=== PATIENT | female | born 1990 | race African-American/Black ===

== ENCOUNTER 2016-06-21 10:14 | Emergency (ER) | payer MEDICAID ==
[~2016-06-21] VITALS: Ht 175.3 cm; Wt 145.4 kg
[~2016-06-21 10:14] MED LIST: LORTA5 PO; MACR100C PO
[2016-06-21 10:17] VITALS: BP 137/78; PULSE 98; RESP 17; TEMP 98.1; O2SAT 100
--- NOTE | 2016-06-21 11:10 | PD ---
HPI Chief Complaint: Related Problem Time Seen by Provider: 10:56 Travel History International Travel<30 days: No Contact w/Intl Traveler<30days: No Traveled to known affect area: No History of Present Illness HPI 26-year-old Ab1 at approximately 19 weeks based on LMP of February 09, 2016 here with complaint of abdominal pain. Patient is at mild low crampy abdominal discomfort 2 days. Denies any urinary symptoms, vaginal bleeding, spotting. She has not yet established OB care for this , recently moving to [facility]. Patient has associated nausea, vomiting which has been going on throughout the . No recent fevers or chills. PFSH Past Medical History Medical History: Denies Significant Hx Tetanus Vaccination: Unknown Influenza Vaccination: No ?: LMP: 02/09/16 : 5 Para: 4 Miscarriage: 1 Past Surgical History Abdominal Surgery: Yes (c section X 3) Section: Yes (X3) Social History Alcohol Use: No Tobacco Use: No Substance Use: No Allergies-Medications (Allergen,Severity, Reaction): Coded Allergies: No Known Allergies (Unverified , 06/21/16) Reported Meds & Prescriptions Reported Meds & Active Scripts Active Review of Systems Except as stated in HPI: all other systems reviewed are Neg Physical Exam Narrative GENERAL: Well-appearing obese female in no acute distress SKIN: Focused skin assessment warm/dry. HEAD: Normocephalic. EYES: No scleral icterus. No injection or drainage. ENT: Mucous membranes pink and moist. NECK: Supple CARDIOVASCULAR: Regular rate and rhythm. RESPIRATORY: No accessory muscle use. GASTROINTESTINAL: Abdomen soft, non-tender, nondistended. MUSCULOSKELETAL: Normal gait NEUROLOGICAL: Awake and alert. Normal speech. PSYCHIATRIC: Appropriate mood and affect; insight and judgment normal. Data Data Last Documented VS Vital Signs Date Time Temp Pulse Resp B/P Pulse Ox O2 Delivery O2 Flow Rate FiO2 06/21/16 11:05 16 06/21/16 10:17 98.1 98 137/78 100 Orders Ed Poc Ultrasound (06/21/16 ) Ed Urine Pregnancytest Poc (06/21/16 10:58) MDM Medical Decision Making Medical Screen Exam Complete: Yes Emergency Medical Condition: Yes Medical Record Reviewed: Yes Differential Diagnosis 26-year-old Ab1 here at approximately 19 weeks based on LMP with complaint of low abdominal pain. Differential includes UTI, appendicitis, diverticulitis, enteritis, and related issues including intrauterine demise, threatened AB, placental abruption. Narrative Course Urine test was positive. Bedside ultrasound performed confirming IUP with active heart rates measuring close to 21 weeks. Patient will be discharged from our emergency department and go to the OB emergency department for further workup. Procedures Procedure Narrative Emergency Department Pelvic ultrasound was performed with patient consent. The curvilinear probe was used in the transverse and sagittal views within the suprapubic region revealing an intrauterine . heart rate was 150s. See this measures 21 weeks by BPD. Diagnosis Primary Impression: Abdominal pain affecting Referrals: Apartment Leasing Specialist 1 day Additional Instructions: Go to OB emergency Department as discussed. Disposition: 01 DISCHARGE HOME Condition: Stable Alejandra Klein MD Jun 21, 2016 11:10
[2016-06-21] MEDS ORDERED: LACTATED RINGER'S 1000 ML INJ 1,000 ML IV SCH (11:36)
[2016-06-21] MEDS ORDERED: ONDANSETRON HCL 4 MG/2 ML VIAL IV ONE (11:45)
[2016-06-21] MEDS ORDERED: METOCLOPRAMIDE HCL 10 MG/2 ML VIAL IV PUSH ONE (11:45)
[2016-06-21 12:08] VITALS: BP 132/70; PULSE 78
[2016-06-21 12:10] VITALS: RESP 18; TEMP 98.5
--- NOTE | 2016-06-21 12:42 | PD ---
HPI Chief Complaint Vomiting Date Seen: Jun 21, 2016 Time Seen: 12:00 Travel History International Travel<30 Days: No Contact w/Intl Traveler<30Days: No Known Affected Area: No History of Present Illness HPI Ms. Dao is a 26 yo ?3 at an estimated 21 weeks GA (per patient) who presents with complaint of nausea/vomiting, loose stools, and headache. She reports that she began having nausea/vomiting on Friday. She states she's been vomiting approximately twice a day. Patient denies history of vomiting prior to Friday during this gestation. Regarding patient's loose stools, patient states that she has had approximately 2 bowel movements a day since Friday which were loose. Patient does not report significant abdominal pain or fevers. She reports some chills. Patient states that her headache is bilateral and not associated with visual changes or other symptoms. Patient reports prior -induced hypertension with her first gestation but states that she had not had elevated blood pressures with subsequent gestations. Patient reports that she is not had care yet this gestation, she recently to [facility] moved from [facility]. Patient denies any other history of medical problems. Para: 3 : 4 History Past Medical History Narrative Medical Gestational hypertension with first Medical History: Denies Significant Hx Obstetric History Obstetric History Patient states this is her fourth gestation 3 prior C-sections; 2 were at full-term and 1 was at 24 weeks Past Surgical History Narrative Surgical section 3 Family History Narrative Family History Hypertension Social History Narrative Social History Recently moved to [facility], no care at this point Alcohol Use: No Tobacco Use: No Substance Abuse: No Allergies-Medications (Allergen,Severity, Reaction): Coded Allergies: No Known Allergies (Unverified , 06/21/16) Home Meds Active Scripts Promethazine (Phenergan)25 Mg Tab25 Mg PO Q6H PRN (Nausea/Vomiting) #30 TAB Ref 0 Prov:Robby Daigle MD R2 06/21/16 Review of Systems General / Constitutional: Chills, No: Fever Eyes: No: Blurred Vision HENT: Headaches (bilateral) Cardiovascular: No: Chest Pain or Discomfort Respiratory: No: Short of Breath Gastrointestinal: Nausea, Vomiting (2X/day 2 days), Other (loose stool, who X/ day) Genitourinary: No: Urgency, Dysuria Skin: No Rash Physical Exam Vital Signs Date Time Temp Pulse Resp B/P Pulse Ox O2 Delivery O2 Flow Rate FiO2 06/21/16 12:10 98.5 06/21/16 12:10 18 06/21/16 11:05 16 06/21/16 10:17 98.1 98 17 137/78 100 Narrative GENERAL: Well-nourished, well-developed patient. SKIN: Warm and dry. HEAD: Normocephalic and atraumatic. EYES: No scleral icterus. No injection or drainage. ENT: No nasal drainage noted. Mucous membranes pink. Airway patent. NECK: Supple, trachea midline. No JVD. CARDIOVASCULAR: Regular rate and rhythm without murmurs RESPIRATORY: CTA B, normal rate ABDOMEN/GI: Abdomen soft, normal bowel sounds. No appreciated tenderness to palpation Gravid to ~20 cm FH EXTREMITIES: No cyanosis or edema. BACK: Nontender without obvious deformity. No CVA tenderness. NEUROLOGICAL: Awake and alert. Motor and sensory grossly within normal limits. Five out of 5 muscle strength in all muscle groups. Normal speech. GENITOURINARY: Cervix: Dilatation: 0 Effacement: thick Station: High Membranes: Intact FHT's: Rate 150 BPM in ED Data Data Vital Signs Reviewed: Yes Orders Ed Poc Ultrasound (06/21/16 ) Ed Urine Pregnancytest Poc (06/21/16 10:58) Vital Signs (Adult) .ON ADMISSION (06/21/16 11:36) ^ Labor Status (06/21/16 11:36) Urinalysis - C+S If Indicated (06/21/16 11:36) Comprehensive Metabolic Panel (06/21/16 11:36) Lactated Ringer's 1000 Ml Inj (Lr 1000 M (06/21/16 11:36) Ondansetron Inj (Zofran Inj) (06/21/16 11:45) Ob/Psych Drug Screen, Urine (06/21/16 11:36) Metoclopramide Inj (Reglan Inj) (06/21/16 11:45) Fentanyl Inj (Fentanyl Inj) (06/21/16 11:45) Rubella Immune Status (06/21/16 11:56) Hepatitis Profile (06/21/16 11:56) Rapid Plasma Regin (Rpr) W Ttr (06/21/16 11:56) Type And Screen (06/21/16 11:56) Complete Blood Count With Diff (06/21/16 11:56) Hiv Antibody Screen (06/21/16 11:56) Us Ob Pelvis >14 Wks Fetus (06/21/16 ) MDM Medical Record Reviewed: Yes Interpretation(s) 26 yo ?3 at an estimated 21 weeks GA (per patient) who presents with complaint of nausea/vomiting, loose stools, and headache -Lack of care -Unsure of dates -Vomiting x 2 days -FHR 150 -FH grossly consistent w/ 20 weeks -Normotensive today Plan: -Will obtain US to clarify dates -Will obtain labs -Will add metabolic panel for vomiting -Will give Zofran, Phenergan for nausea Course: Ultrasound confirmed estimated gestational age of 21 weeks 5 days and FHR 159 Patient given Zofran, Phenergan, Fentanyl -Patient given info to set up care with [facility] -Will discharge patient with Phenergan 25mg PRN for nausea Diagnosis Diagnosis: Primary Impression: Abdominal pain affecting Additional Impression: Vomiting Disposition: 01 DISCHARGE HOME Condition: Stable Scripts Promethazine (Phenergan)25 Mg Tab25 Mg PO Q6H PRN (Nausea/Vomiting) #30 TAB Ref 0 Prov:Robby Daigle MD R2 06/21/16 Referrals: Promotional Marketing Analyst 1 day Patient Instructions: General Instructions Additional Instructions: Go to OB emergency Department as discussed. Departure Forms: Tests/Procedures Robby Daigle MD R2 Jun 21, 2016 12:42
[2016-06-21] MEDS ORDERED: PROM25TA5 PO (13:15)
--- NOTE | 2016-06-21 13:18 | PD ---
History of Present Illness Date Seen: Jun 21, 2016 History of Present Illness Patient is 26-year-old black female previous 3. This presents with no care at this time complaining of abdominal pain nausea vomiting headache, she denies vaginal bleeding or ruptured membranes. heart tones are 150s, ultrasound was done which shows a 21 week 5 day intrauterine normal anatomy noted., giving her an EDC of 10/27/16. labs drawn on patient, the patient cervix is closed and long. Uterus approximately umbilicus patient is given a liter of IV fluid for hydration IV Zofran and Reglan for nausea and vomiting, she be given a prescription take home for Phenergan by mouth, and given a dose IV narcotic for pain today. She is encouraged to get care initiated and continue that over the next 4+ months Poncho Marvin II, MD Jun 21, 2016 13:18
[2016-06-21 13:44] LABS: AUTOMATED NEUTROPHIL # 4.9 TH/MM3 (1.8-7.7); BASOPHIL % 0.1 % (0.0-2.0); EOSINOPHIL # 0.1 TH/MM3 (0-0.4); EOSINOPHIL % 0.6 % (0.0-4.0); HEMATOCRIT 34.1 % (35.0-46.0); HEMO FLAGS DIFF FINAL; LYMPH % 28.3 % (9.0-44.0); LYMPHOCYTE # 2.2 TH/MM3 (1.0-4.8); MEAN CELL VOLUME 83.9 FL (80.0-100.0); MEAN CORPUSCULAR HEMOGLOBIN 28.3 PG (27.0-34.0); MEAN CORPUSCULAR HGB CONC 33.8 % (32.0-36.0); PLATELET COUNT 221 TH/MM3 (150-450); RED BLOOD COUNT 4.06 MIL/MM3 (4.00-5.30); RED CELL DISTRIBUTION WIDTH 14.1 % (11.6-17.2); WHITE BLOOD COUNT 7.9 TH/MM3 (4.0-11.0)
[2016-06-21 13:56] LABS: ALT (GPT) 12 U/L (10-53); ANION GAP 8 MEQ/L (5-15); AST (GOT) 10 U/L (15-37); BICARBONATE 25.9 MEQ/L (21.0-32.0); BLOOD UREA NITROGEN 5 MG/DL (7-18); CHLORIDE 103 MEQ/L (98-107); GLOMERULAR FILTRATION RATE 148 ML/MIN (>89); SODIUM (NA) 137 MEQ/L (136-145)
[2016-06-21 13:58] LABS: ALKALINE PHOSPHATASE 47 U/L (45-117); TOTAL BILIRUBIN ADULT 0.2 MG/DL (0.2-1.0)
[2016-06-21 14:17] LABS: RUBELLA IGG ANTIBODY 45.1 IU/mL (10.0-500.0); RUBELLA STATUS IMMUNE (IMMUNE)
[2016-06-21 15:31] LABS: BACTERIA, URINE OCC /hpf; BLOOD, URINE NEG (NEG); COMMENT (UR) CULT NOT INDICATED; CULTURE IF INDICATED CULT NOT INDICATED; GLUCOSE,URINE NEG (NEG); KETONE, URINE 80 mg/dL (NEG); MUCUS URINE FEW /lpf (OCC); NITRITE,URINE NEG (NEG); PH, URINE 6.5 (5.0-8.5); SQUAMOUS EPITHELIAL CELL URINE <1 /hpf (0-5); URINE COLOR YELLOW (YELLW/STRAW)
[2016-06-21 15:52] LABS: AMPHETAMINE, URINE NEG (NEG); BARBITURATES, URINE NEG (NEG); COCAINE, URINE NEG (NEG)
[2016-06-24 15:58] LABS: RAPID PLASMA REAGIN SCREEN NON-REACTIVE (NON-REACTVE)
[2016-06-28 11:07] LABS: ECSTASY (MDMA) UR NEG (NEG); HEROIN (6-ACETYLMORPHINE) UR NEG (NEG); K2 SPICE UR NEG (NEG); OBMETHADONE UR NEG (NEG); PHENCYCLIDINE URINE NEG (NEG)
[2016-06-28 11:08] LABS: BATH SALTS (MDPV) UR NEG (NEG); OXYCODONE (PERCODAN) NEG (NEG)
== END 2016-06-21 15:04 | disposition home or self-care (01) ==
LOC: NEPD 10:14 → HOBED 15:04
DX: O26.892 Other specified pregnancy related conditions, second trimester (principal); R10.30 Lower abdominal pain, unspecified; R51 Headache; R19.7 Diarrhea, unspecified; O21.9 Vomiting of pregnancy, unspecified; O09.32 Supervision of pregnancy with insufficient antenatal care, second trimester; Z3A.21 21 weeks gestation of pregnancy
CPT/HCPCS: 76805; 80053; 80074; 80307; 81001; 84703; 85025; 86592; 86703; 86762; 86850; 86900; 86901; 96361; 96374; 96375; 99284; G0481; J2405; J2765; J3010; J7120

== ENCOUNTER 2016-10-22 18:36 | Emergency (ER) | payer MEDICAID ==
[~2016-10-22] VITALS: Ht 172.7 cm; Wt 105.0 kg
[~2016-10-22 18:36] MED LIST changes: -LORTA5 PO; -MACR100C PO; +PROM25TA5 PO
[2016-10-22 18:43] VITALS: BP 157/68; PULSE 75; RESP 16; TEMP 98.4; O2SAT 98
--- NOTE | 2016-10-22 19:18 | PD ---
Physical Exam Time Seen by Provider: 19:17 Narrative 26 y/o female here with back pain for the past few days. 1920:The patient now says that she is 9 months and this is why her back is hurting. She will go to OB ed. Vital signs reviewed. Seen at triage desk. Awaiting bed placement. Data Data Last Documented VS Vital Signs Date Time Temp Pulse Resp B/P Pulse Ox O2 Delivery O2 Flow Rate FiO2 10/22/16 18:43 98.4 75 16 157/68 98 MDM Medical Record Reviewed: Yes Supervised Visit with KAREN: Luis Bose Oct 22, 2016 19:18
[2016-10-22 20:45] VITALS: PULSE 91
[2016-10-22 20:50] VITALS: PULSE 85
--- NOTE | 2016-10-22 20:58 | PD ---
HPI Chief Complaint low back pain Date Seen: Oct 22, 2016 Travel History International Travel<30 Days: No Contact w/Intl Traveler<30Days: No Known Affected Area: No History of Present Illness HPI Pt is a 26 y/o with IUP at 38.4 wks by 21 wk u/s who presents for eval of low back pain. Pt has h/o previous x 3, h/o delivery last . She has not had any care this ; pt states she was unable to find someone to accept her because of late entry, and she was too high risk. Pt c/o back pain past few days, lower back, worse today. Pt took one tylenol today. Pt denies contractions, vb, lof. +FM Para: 3 : 5 Last Menstrual Period: Feb 04, 2016 (?02/04/2016) Miscarriage: 1 History Past Medical History Narrative Medical denies Obstetric History Obstetric History 2010 full term primary secondary to heart rate 2014 full term repeat 2016 at 6 months--pt states she had bleeding and suspected placental separation; baby weighed 1lb 9 oz; pt does not know any details of , unaware of uterine incision type SAB x 1 Past Surgical History Narrative Surgical x 3 Family History Family History: Negative Social History Alcohol Use: No Tobacco Use: No Substance Abuse: No Allergies-Medications (Allergen,Severity, Reaction): Coded Allergies: No Known Allergies (Unverified , 06/21/16) Home Meds Active Scripts Promethazine (Phenergan)25 Mg Tab25 Mg PO Q6H PRN (Nausea/Vomiting) #30 TAB Ref 0 Prov:Robby Daigle MD R3 06/21/16 Narrative Medication PNV Review of Systems General / Constitutional: Weight Gain Eyes: No: Diploplia, Blurred Vision, Visual changes, Pain, Photophobia, Other HENT: No: Headaches, Vertigo, Dental Difficulties, Lightheadedness, Other Cardiovascular: No: Irregular Rhythm, Chest Pain or Discomfort, Palpitations, Tachycardia, Syncope, Varicosities, Edema, Cyanosis, Other Respiratory: No: Cough, Short of Breath, Wheezing, Other Gastrointestinal: No: Nausea, Vomiting, Diarrhea, Abdominal Pain, Hematemesis, Hematochezia, Constipation, Changes in Bowel Habits, Indigestion, Loss of Appetite, Other Genitourinary: No: Urgency, Frequency, Dysuria, Nocturia, Hematuria, Decreased Urinary Output, Oliguria, Hesitancy, Dribbling, Incontinence, Pelvic Pain, Dyspareunia, Discharge, Menorrhagia, Vaginal Bleeding, Other Musculoskeletal: No: Limited ROM, Weakness, Cramping, Edema, Pain, Other Skin: No Rash, No Itching, No Dryness, No Lumps, No Change in Pigmentation, No Change in Nails, No Alopecia, No Lesions, No Breast Lumps, No Breast Tenderness , No Breast Swelling, No Other Neurologic: No: Weakness, Dizziness, Syncope, Focal Abnormalities, Coordination Problem, Headache, Slurred Speech, Seizures, Other Psychiatric: No: Anxiety, Depression, Suicidal Ideations, Disorder of Thought, Mood Disorder, Substance Abuse, Homicidal Ideation, Other Endocrine: No: Heat Intolerance, Cold Intolerance, Polydipsia, Polyuria, Other Hematologic/Lymphatic: No Easy Bruising, No Lymph Node Enlargement, No Other Physical Exam BP 103/55 P 95 R 18 T 98.8 Vital Signs Date Time Temp Pulse Resp B/P Pulse Ox O2 Delivery O2 Flow Rate FiO2 10/22/16 18:43 98.4 75 16 157/68 98 Narrative GENERAL: Well-nourished, well-developed patient. SKIN: Warm and dry. HEAD: Normocephalic and atraumatic. EYES: No scleral icterus. No injection or drainage. ENT: No nasal drainage noted. Mucous membranes pink. Airway patent. NECK: Supple, trachea midline. No JVD. CARDIOVASCULAR: Regular rate and rhythm without murmurs, gallops, or rubs. RESPIRATORY: Breath sounds equal bilaterally. No accessory muscle use. BREASTS: Bilateral exam showed no masses , no retractions, no nipple discharge. ABDOMEN/GI: Abdomen soft, non-tender, bowel sounds present, no rebound, no guarding Gravid GENITOURINARY: External Genitalia: intact and normal in appearance BUS glands: [wnl-] Cervix: posterior Dilatation: closed Effacement: long Station: high Presentation: ceph Membranes: intact Uterine Contractions: none FHT's: Category: 1 Baseline: 130 Reactive: yes Variability: mod Decels: no EXTREMITIES: No cyanosis or edema. BACK: Nontender without obvious deformity. No CVA tenderness. NEUROLOGICAL: Awake and alert. Motor and sensory grossly within normal limits. Five out of 5 muscle strength in all muscle groups. Normal speech. Data Data Vital Signs Reviewed: Yes Orders Vital Signs (Adult) .ON ADMISSION (10/22/16 20:37) ^ Labor Status (10/22/16 20:37) Urinalysis - C+S If Indicated (10/22/16 20:37) Gc And Chlamydia Pcr (10/22/16 20:37) Group B Beta Strep Scrn (Gbs) (10/22/16 20:37) Ob/Psych Drug Screen, Urine (10/22/16 20:37) MDM Medical Record Reviewed: Yes (labs from June visit reviewed) Narrative Course / MDM 26 y/o with IUP at 38.4 wks by 21 wk u/s 1. low back pain of --heat/massage/rest, tylenol prn 2. no care--PNL from June reviewed. 21 wk u/s done in June. GBS, GC/CT and UDS done today 3. previous x 3--need repeat. will schedule patient to return at 39 wks. Pt scheduled on 10/28/16 at 11 am. Preoperative instructions reviewed with patient. 4. h/o delivery (6 months) secondary to bleeding and suspected abruption--pt states operation performed at [facility] in [facility] Records release signed. Will attempt to get op note. labor precautions, [facility] Diagnosis Diagnosis: Primary Impression: 38 weeks gestation of Additional Impression: Back pain affecting in third trimester Disposition: DISCHARGE HOME Condition: Stable Laurel Lubin MD Oct 22, 2016 20:58
[2016-10-22 21:51] LABS: BACTERIA, URINE RARE /hpf; BLOOD, URINE NEG (NEG); COMMENT (UR) CULT NOT INDICATED; CULTURE IF INDICATED CULT NOT INDICATED; GLUCOSE,URINE NEG (NEG); KETONE, URINE TRACE mg/dL (NEG); MUCUS URINE FEW /lpf (OCC); NITRITE,URINE NEG (NEG); PH, URINE 6.5 (5.0-8.5); URINE COLOR YELLOW (YELLW/STRAW)
[2016-10-22 23:46] LABS: CHLAMYDIA PCR NOT DETECTED (NOT DETECT); NEISSERIA PCR NOT DETECTED (NOT DETECT)
[2016-10-26 12:41] LABS: PHENCYCLIDINE URINE NEG (NEG)
[2016-10-26 12:42] LABS: BATH SALTS (MDPV) UR NEG (NEG); ECSTASY (MDMA) UR NEG (NEG); GABAPENTIN UR NEG (NEG); HEROIN (6-ACETYLMORPHINE) UR NEG (NEG); HYDROMORPHONE U NEG (NEG); K2 SPICE UR NEG (NEG); OBMETHADONE UR NEG (NEG)
== END 2016-10-22 21:00 | disposition home or self-care (01) ==
LOC: HOBED 18:36
DX: O26.893 Other specified pregnancy related conditions, third trimester (principal); M54.9 Dorsalgia, unspecified; Z3A.38 38 weeks gestation of pregnancy; Z79.899 Other long term (current) drug therapy
CPT/HCPCS: 80307; 81001; 87081; 87150; 87491; 87591; 99284; G0481

== ENCOUNTER 2016-10-28 09:27 | Inpatient (IN) | payer MEDICAID ==
[2016-10-28] VITALS (11 sets, daily range): BP systolic 111–146; BP diastolic 61–85; PULSE 65–94; RESP 14–20; TEMP 97.5–98.5; O2SAT 99–100
[2016-10-28] MEDS ORDERED: LACTATED RINGER'S 1000 ML INJ 1,000 ML IV ONE (10:39)
--- NOTE | 2016-10-28 10:44 | HHI.HP ---
HPI Chief Complaint Repeat Date Seen: Oct 28, 2016 Travel History International Travel<30 Days: No Contact w/Intl Traveler<30Days: No History of Present Illness HPI Patient is a 26 year old at 39-3/7 weeks gestation who presents today for repeat . She denies any vaginal bleeding or discharge. No gush or leaking of fluid. Positive movement. No contractions. She was poorly compliant with care. She has had 3 previous C-sections. History Past Medical History Medical History: Denies Significant Hx Obstetric History Obstetric History s/p x 3 First for indication Past Surgical History Narrative Surgical x 3 Family History Family History: Negative Social History Alcohol Use: No Tobacco Use: No Substance Abuse: No Allergies-Medications (Allergen,Severity, Reaction): Coded Allergies: No Known Allergies (Unverified , 06/21/16) Home Meds Active Scripts Promethazine (Phenergan)25 Mg Tab25 Mg PO Q6H PRN (Nausea/Vomiting) #30 TAB Ref 0 Prov:Robby Daigle MD, R3 06/21/16 Review of Systems Except as stated in HPI: all other systems reviewed are Neg General / Constitutional: No: Fever, Chills Eyes: No: Blurred Vision, Visual changes HENT: No: Headaches Cardiovascular: No: Chest Pain or Discomfort Respiratory: No: Short of Breath Gastrointestinal: No: Nausea, Vomiting Genitourinary: No: Dysuria, Pelvic Pain, Discharge, Vaginal Bleeding Musculoskeletal: No: Edema Neurologic: No: Headache Psychiatric: No: Substance Abuse Physical Exam Narrative GENERAL: Well-nourished, well-developed patient. SKIN: Warm and dry. HEAD: Normocephalic and atraumatic. EYES: No scleral icterus. No injection or drainage. ENT: No nasal drainage noted. Mucous membranes pink. Airway patent. NECK: Supple, trachea midline. No JVD. CARDIOVASCULAR: Regular rate and rhythm without murmurs, gallops, or rubs. RESPIRATORY: Breath sounds equal bilaterally. No accessory muscle use. ABDOMEN/GI: Abdomen soft, non-tender, bowel sounds present, no rebound, no guarding Gravid to 39 weeks size GENITOURINARY: External Genitalia: intact and normal in appearance Presentation: vertex Membranes: intact Uterine Contractions: none FHT's: Category: I Baseline: 150 Reactive: + Variability: moderate Decels: none EXTREMITIES: No cyanosis or edema. BACK: Nontender without obvious deformity. No CVA tenderness. NEUROLOGICAL: Awake and alert. Motor and sensory grossly within normal limits. Normal speech. Data Data Vital Signs Reviewed: Yes Orders Admit To Inpatient (10/28/16 ) Code Status (10/28/16 10:39) Vital Signs (Adult) .ON ADMISSION (10/28/16 10:39) Activity Oob Ad Oma (10/28/16 10:39) Heart (10/28/16 10:39) Urinary Catheter Management JANAE.Q8H (10/28/16 10:39) ^ Preps (10/28/16 10:39) Scd / Yasmani / Foot Pump JANAE.QSHIFT (10/28/16 10:39) ^ Ultrasound For Locatio (10/28/16 10:39) Diet Npo (10/28/16 Lunch) Lactated Ringer's 1000 Ml Inj (Lr 1000 M (10/28/16 10:39) Lactated Ringer's 1000 Ml Inj (Lr 1000 M (10/28/16 11:09) Cefazolin 2 Gm Premix (Ancef 2 Gm Premix (10/28/16 11:45) Assessment/Plan Assessment and Plan 26 year old at 39-3/7 weeks gestation. 1. IUP- Category I tracing, reassuring. 2. Repeat 3. GBS negative dw Re Littlejohn MD, R3 Oct 28, 2016 10:44
[2016-10-28] MEDS ORDERED: LACTATED RINGER'S 1000 ML INJ 1,000 ML IV SCH ×2 (11:09→18:41)
[2016-10-28 11:26] LABS: AUTOMATED NEUTROPHIL # 4.7 TH/MM3 (1.8-7.7); BASOPHIL % 0.1 % (0.0-2.0); EOSINOPHIL % 0.4 % (0.0-4.0); HEMATOCRIT 31.7 % (35.0-46.0); HEMO FLAGS DIFF FINAL; LYMPH % 27.1 % (9.0-44.0); LYMPHOCYTE # 2.1 TH/MM3 (1.0-4.8); MEAN CELL VOLUME 83.9 FL (80.0-100.0); MEAN CORPUSCULAR HEMOGLOBIN 27.1 PG (27.0-34.0); MEAN CORPUSCULAR HGB CONC 32.3 % (32.0-36.0); MONO % 10.8 % (0.0-8.0); NEUT % 61.6 % (16.0-70.0); PLATELET COUNT 217 TH/MM3 (150-450); RED BLOOD COUNT 3.78 MIL/MM3 (4.00-5.30); RED CELL DISTRIBUTION WIDTH 14.7 % (11.6-17.2); WHITE BLOOD COUNT 7.6 TH/MM3 (4.0-11.0)
[2016-10-28 11:44] LABS: BLOOD, URINE NEG (NEG); COMMENT (UR) CULT NOT INDICATED; CULTURE IF INDICATED CULT NOT INDICATED; GLUCOSE,URINE NEG (NEG); KETONE, URINE NEG (NEG); MUCUS URINE FEW /lpf (OCC); NITRITE,URINE NEG (NEG); SQUAMOUS EPITHELIAL CELL URINE <1 /hpf (0-5); TRANSITIONAL EPI CELLS, URINE <1 /hpf; URINE COLOR YELLOW (YELLW/STRAW)
[2016-10-28] MEDS ORDERED: ceFAZolin 2 GM PREMIX 50 ML IV SCH (11:45)
[2016-10-28] MEDS ORDERED: ONDANSETRON HCL 4 MG/2 ML VIAL ONE (11:58)
[2016-10-28] MEDS ORDERED: OXYTOCIN 10 UNIT/ML AMP ONE (11:58)
[2016-10-28] MEDS ORDERED: MORPHINE SULFATE PF 5 MG/10 ML VIAL ONE (11:58)
[2016-10-28] MEDS ORDERED: EPIDURAL-DIPHENHYDRAMINE HCL 50 MG/ML VIAL IV PUSH PRN (12:05)
[2016-10-28] MEDS ORDERED: EPIDURAL-DIPHENHYDRAMINE HCL 50 MG CAP PO PRN (12:05)
[2016-10-28] MEDS ORDERED: EPIDURAL-DO NOT ADMINISTER ANTICOAGULANTS PRN (12:05)
[2016-10-28] MEDS ORDERED: EPIDURAL-NALOXONE HCL 0.4 MG/ML AMP IV PRN (12:05)
[2016-10-28] MEDS ORDERED: EPIDURAL-NO SYSTEMIC NARCOTICS PRN (12:05)
[2016-10-28] MEDS ORDERED: CITRIC ACID-SODIUM CITRATE LIQ 30 ML UDC PO SCH (12:15)
[2016-10-28] MEDS ORDERED: LACTATED RINGER'S 1,000 ML BAG IV ONE (12:46)
[2016-10-28] MEDS ORDERED: oxyCODONE/ACETAMINOPHEN 5 MG/325 MG TAB PO PRN (13:45)
[2016-10-28] MEDS ORDERED: ONDANSETRON HCL 4 MG/2 ML VIAL IV PUSH PRN (13:45)
[2016-10-28] MEDS ORDERED: SIMETHICONE 80 MG CHEWABLE TAB PO PRN (13:45)
[2016-10-28] MEDS ORDERED: OXYTOCIN 30 UNITS-500ML PREMIX 500 ML IV ONE (13:45)
[2016-10-28] MEDS ORDERED: DOCUSATE SODIUM 50 MG/SENNA 8.6 MG TAB PO PRN (13:45)
[2016-10-28] MEDS ORDERED: SODIUM CHLORIDE 0.9% FLUSH 10 ML FLUSH IV FLUSH PRN (13:45)
[2016-10-28] MEDS ORDERED: ACETAMINOPHEN 325 MG TAB PO PRN (13:45)
[2016-10-28] MEDS ORDERED: KETOROLAC TROMETHAMINE 60 MG/2 ML (IM) VIAL IM PRN (13:45)
[2016-10-28] MEDS ORDERED: OXYTOCIN 30 UNITS-500ML PREMIX 500 ML ONE (14:44)
[2016-10-28] MEDS ORDERED: ZOLPIDEM TARTRATE 5 MG TAB PO PRN (21:00)
[2016-10-28] MEDS ORDERED: SODIUM CHLORIDE 0.9% FLUSH 10 ML FLUSH IV FLUSH SCH (21:00)
[2016-10-28] MEDS ORDERED: OXYTOCIN 30 UNITS-500ML PREMIX 500 ML IV PRN (23:45)
[2016-10-29] MEDS: IBUPROFEN 600 MG TAB PO PRN ×4 (02:10→21:35)
[2016-10-29] MEDS: oxyCODONE/ACETAMINOPHEN 5 MG/325 MG TAB PO PRN ×4 (02:11→21:35)
[2016-10-29 04:30] VITALS: BP 118/62; PULSE 68; RESP 16; TEMP 98.3
[2016-10-29 06:03] LABS: AUTOMATED NEUTROPHIL # 11.8 TH/MM3 (1.8-7.7); BASOPHIL % 0.1 % (0.0-2.0); HEMATOCRIT 32.1 % (35.0-46.0); HEMO FLAGS DIFF FINAL; LYMPH % 11.1 % (9.0-44.0); LYMPHOCYTE # 1.7 TH/MM3 (1.0-4.8); MEAN CORPUSCULAR HEMOGLOBIN 27.3 PG (27.0-34.0); MEAN CORPUSCULAR HGB CONC 32.9 % (32.0-36.0); MONO % 9.3 % (0.0-8.0); NEUT % 79.5 % (16.0-70.0); PLATELET COUNT 195 TH/MM3 (150-450); RED BLOOD COUNT 3.87 MIL/MM3 (4.00-5.30); RED CELL DISTRIBUTION WIDTH 14.6 % (11.6-17.2); WHITE BLOOD COUNT 14.9 TH/MM3 (4.0-11.0)
[2016-10-29 07:20] VITALS: RESP 16
--- NOTE | 2016-10-29 07:54 | HHI.OB ---
Subjective Remarks Postoperative day # 1 AFVSS overnight. Incision not draining. Decreased lochia. Denies dysuria. No breast tenderness. She is feeding the baby via breast/ formula. Appetite good. No nausea or vomiting. Positive []flatus/bowel movement. Ambulating well. Denies calf pain or shortness of breath. Otherwise , she is doing well this morning and has no other complaints. Objective Vitals/I&O Vital Signs Date Time Temp Pulse Resp B/P Pulse Ox O2 Delivery O2 Flow Rate FiO2 10/29/16 04:30 98.3 68 16 118/62 10/28/16 23:40 98.2 81 16 135/80 10/28/16 19:40 98.5 74 16 120/69 10/28/16 15:40 77 20 131/85 10/28/16 15:40 97.5 10/28/16 15:15 94 19 146/77 100 10/28/16 15:03 73 20 134/70 100 10/28/16 14:53 97.5 10/28/16 14:49 14 99 10/28/16 14:49 65 115/65 10/28/16 14:34 68 15 123/69 100 10/28/16 14:20 111/61 10/28/16 14:20 67 16 100 10/28/16 14:05 71 18 100 10/28/16 14:05 118/72 10/28/16 13:50 76 16 115/71 10/28/16 13:50 97.6 100 Result Diagram: 10/29/16 0524 Objective Remarks GENERAL: Well-nourished, well-developed patient. CARDIOVASCULAR: Regular rate and rhythm without murmurs, gallops, or rubs. RESPIRATORY: Breath sounds equal bilaterally. No accessory muscle use. ABDOMEN/GI: Abdomen soft, non-tender, bowel sounds present. Incision: Clean, dry and intact. Fundus: Firm, non-tender at umbilicus. GENITOURINARY: Light to moderate bleeding. EXTREMITIES: No cyanosis or edema, non-tender, without signs of DVT. Medications and IVs Current Medications Medications (Trade) Dose Ordered Sig/Morteza Route Start Time Stop Time Status Last Admin Lactated Ringer's 1,000 ml @ 150 mls/hr Q6H40M IV 10/28/16 11:09 10/28/16 11:31 (Lr 1000 ml Inj) 1,000 ml @ 100 mls/hr Q10H IV 10/28/16 18:41 10/29/16 14:40 10/28/16 21:55 (NS Flush) 2 ml BID IV FLUSH 10/28/16 21:00 (NS Flush) 2 ml UNSCH PRN IV FLUSH 10/28/16 13:45 (Mylicon Chew) 80 mg QID PRN PO 10/28/16 13:45 (Tylenol) 650 mg Q6H PRN PO 10/28/16 13:45 (Motrin) 600 mg Q6H PRN PO 10/28/16 13:45 10/29/16 02:10 (Percocet 5-325 Mg) 1 tab Q4H PRN PO 10/28/16 13:45 10/29/16 02:11 (Percocet 5-325 Mg) 2 tab Q4H PRN PO 10/28/16 13:45 (Fouzia-Colace) 2 tab Q12H PRN PO 10/28/16 13:45 (Ambien) 5 mg HS PRN PO 10/28/16 21:00 (M-M-R Ii Inj) 0.5 ml ONCE ONCE SQ 10/29/16 16:00 10/29/16 16:01 (Boostrix Inj) 0.5 ml ONCE ONCE IM 10/29/16 16:00 10/29/16 16:01 10/29/16 04:34 (Zofran Inj) 4 mg Q6H PRN IV PUSH 10/28/16 13:45 10/28/16 20:40 Miscellaneous Information NO SYSTEMIC NARCOTICS TO BE GIVEN FO... UNSCH PRN .XX 10/28/16 12:05 10/29/16 12:04 (Narcan Inj) 0.4 mg UNSCH PRN IV 10/28/16 12:05 10/29/16 12:04 (Benadryl Inj) 25 mg Q6H PRN IV PUSH 10/28/16 12:05 10/29/16 12:04 (Benadryl) 50 mg Q6H PRN PO 10/28/16 12:05 10/29/16 12:04 Miscellaneous Information ALL NURSING DEPARTMENTS UNSCH PRN .XX 10/28/16 12:05 10/29/16 12:04 Assessment/Plan Assessment and Plan 26 y/o female who is POD# 1 s/p repeat CXN. -Continue routine care. -Percocet and Motrin PRN pain. -Encouraged OOB. Advised pelvic rest for 6 wks. Will need a f/u appt. in 1 wk for incision check. -Re: ctrl, she would like IUD. -D/c in 1-[address] Marvin and Dr. Zhou R1 Re Fournier MD, R3 Oct 29, 2016 07:54
[2016-10-29 08:40] VITALS: BP 109/69; PULSE 78; RESP 18; TEMP 98.4
[2016-10-29 12:40] VITALS: RESP 18
[2016-10-29 14:40] VITALS: BP 136/72; PULSE 89; RESP 18; TEMP 97.9
[2016-10-29] MEDS ORDERED: MEASLES, MUMPS, RUBELLA VACCINE 0.5 ML VIAL SQ ONE (16:00)
[2016-10-29] MEDS ORDERED: DIPHTH/TETANUS/ACEL PERTUSSIS (BOOSTER) 0.5 ML VIAL/PFS IM ONE (16:00)
--- NOTE | 2016-10-29 17:47 | MP ---
cc: NAVI MARVIN MD DATE OF SURGERY 10/28/16 PREOPERATIVE DIAGNOSIS Previous caesarean section times three at term at 39 weeks for repeat caesarean section. POSTOPERATIVE DIAGNOSIS Previous caesarean section times three at term at 39 weeks for repeat caesarean section. PROCEDURE PERFORMED Repeat low transverse caesarean section SURGEON Rc Marvin MD TELEPHONE APPOINTMENT CLERK Dr. Fournier ANESTHESIA Spinal INDICATIONS The patient is a 26 year old black female, G5, P3 previous caesarean section times three now for repeat caesarean section at 39 1/2 weeks. The patient has had care through [facility]. PROCEDURE IN DETAIL The patient was taken to the operating room, placed in supine position on the operating table. Adequate spinal anesthesia was administered. She was prepped and draped for abdominal surgery. A Pfannenstiel incision was made in the lower abdomen and carried to the fascia sharply. Fascia was dissected off the rectus muscle and the rectus split in the midline. Peritoneal cavity entered sharply. The bladder blade was placed in the lower incision and the incision extended superiorly and inferiorly then stretched open. Bladder blade placed in lower incision. The visceral peritoneum reflected off the lower uterine segment and placed on the bladder blade. A transverse hysterotomy was made and extended bluntly bilaterally and a male was delivered at 12:44 p.m., weight 3150 grams, Apgars 8 and 9. There were no complications at delivery. Cord blood obtained. . The uterus was left in situ. The incisions were grasped with running forceps and then the hysterotomy was closed with running layer of 0 chromic followed by imbricating suture of same and hemostasis was achieved with several stick ties in the incision line. Small defect in the uterine wall anteriorly was closed with three mattress sutures stick ties. Hemostasis was achieved. The rectus muscle was reapproximated with interrupted stick ties and the fascia closed with running layer of 0 Vicryl. Subcutaneous tissue was reapproximated with 3-0 plain gut in a running suture and 3-0 Monocryl used to close the skin and subcu. Steri-strips applied and pressure dressing applied. Estimated blood loss 500 cc. There were no complications. Sponge and needle count correct times two. The patient went to recovery in stable condition. Navi Marvin MD BLD/SA Liu: 10/28/2016/1:47 PM /5:27 PM
[2016-10-29 19:29] VITALS: BP 106/60; PULSE 84; RESP 14; TEMP 99
[2016-10-30] MEDS: IBUPROFEN 600 MG TAB PO PRN ×2 (04:50→13:57)
[2016-10-30] MEDS: oxyCODONE/ACETAMINOPHEN 5 MG/325 MG TAB PO PRN ×2 (04:50→13:57)
--- NOTE | 2016-10-30 07:54 | HHI.OB ---
Subjective Remarks Postoperative day # 2 AFVSS overnight. Incision not draining. Decreased lochia. Denies dysuria. No breast tenderness. She is feeding the baby via breast/ formula. Appetite good. No nausea or vomiting. Positive flatus. Ambulating well. Denies calf pain or shortness of breath. Otherwise, she is doing well this morning and has no other complaints. Objective Vitals/I&O Vital Signs Date Time Temp Pulse Resp B/P Pulse Ox O2 Delivery O2 Flow Rate FiO2 10/29/16 19:29 99.0 84 14 106/60 10/29/16 14:40 97.9 89 18 10/29/16 14:40 136/72 10/29/16 12:40 18 10/29/16 08:40 98.4 78 18 109/69 Result Diagram: 10/29/16 0524 Objective Remarks GENERAL: Well-nourished, well-developed patient. CARDIOVASCULAR: Regular rate and rhythm without murmurs, gallops, or rubs. RESPIRATORY: Breath sounds equal bilaterally. No accessory muscle use. ABDOMEN/GI: Abdomen soft, non-tender, bowel sounds present. Incision: Clean, dry and intact. Fundus: Firm, non-tender at umbilicus. GENITOURINARY: Light to moderate bleeding. EXTREMITIES: No cyanosis or edema, non-tender, without signs of DVT. Medications and IVs Current Medications Medications (Trade) Dose Ordered Sig/Morteza Route Start Time Stop Time Status Last Admin (Lr 1000 ml Inj) 1,000 ml @ 150 mls/hr Q6H40M IV 10/28/16 11:09 10/28/16 11:31 (NS Flush) 2 ml BID IV FLUSH 10/28/16 21:00 (NS Flush) 2 ml UNSCH PRN IV FLUSH 10/28/16 13:45 (Mylicon Chew) 80 mg QID PRN PO 10/28/16 13:45 (Tylenol) 650 mg Q6H PRN PO 10/28/16 13:45 (Motrin) 600 mg Q6H PRN PO 10/28/16 13:45 10/30/16 04:50 (Percocet 5-325 Mg) 1 tab Q4H PRN PO 10/28/16 13:45 10/30/16 04:50 (Percocet 5-325 Mg) 2 tab Q4H PRN PO 10/28/16 13:45 (Fouzia-Colace) 2 tab Q12H PRN PO 10/28/16 13:45 10/29/16 09:03 (Ambien) 5 mg HS PRN PO 10/28/16 21:00 (Zofran Inj) 4 mg Q6H PRN IV PUSH 10/28/16 13:45 10/28/16 20:40 Assessment/Plan Assessment and Plan 26 y/o female who is POD# 2 s/p repeat CXN. -Continue routine care. -Percocet and Motrin PRN pain. -Encouraged OOB. Advised pelvic rest for 6 wks. Will need a f/u appt. in 1 wk for incision check. -Re: ctrl, she would like IUD. She would like Depo-Provera prior to discharge. -Anticipate discharge home today. dw Dr. Benton and Dr. Zhou R1 Re Fournier MD, R3 Oct 30, 2016 07:54
[2016-10-30] MEDS ORDERED: OXYC1TAB63 PO (07:55)
[2016-10-30] MEDS ORDERED: PERI8.6T PO (07:55)
[2016-10-30] MEDS ORDERED: IBUP-232 PO (07:55)
--- NOTE | 2016-10-30 07:56 | HHI.DCPOC ---
Discharge Care Plan Diagnosis: (1) delivery delivered Report Symptoms to Your Doctor -Temperature above 100.5 degrees -Redness, of incision or excessive or foul smelling drainage -Unusual pain or calf pain -Increased vaginal bleeding -Painful or difficulty urinating -Feelings of extreme sadness or anxiety after 2 weeks Goals to Promote Your Health * To prevent worsening of your condition and complications * To maintain your health at the optimal level Directions to Meet Your Goals Take your medications as prescribed Follow your dietary instruction Follow activity as directed Ensure plenty of rest for recovery Drink fluids for hydration Keep your appointments as scheduled Take your immunizations and boosters as scheduled If your symptoms worsen call your PCP, if no PCP go to Urgent Care Center or Emergency Room Smoking is Dangerous to Your Health. Avoid second hand smoke Call the 24-hour crisis hotline for domestic abuse at Re Fuornier MD, R3 Oct 30, 2016 07:56
[2016-10-30] MEDS ORDERED: medroxyPROGESTERone ACETATE SUSP 150 MG/ML SYRINGE IM ONE (08:00)
[2016-10-30 09:00] VITALS: BP 110/69; PULSE 85; RESP 18; TEMP 98.5
[2016-10-30 14:57] VITALS: RESP 2
== END 2016-10-30 15:52 | disposition home or self-care (01) | DRG 766 ==
LOC: H2EB 09:27 → H1EA 15:26
PROVIDERS: ADMIT Obstetrics & Gynecology Maternal & Fetal Medicine; ATTEND Obstetrics & Gynecology Maternal & Fetal Medicine
PROC: 10D00Z1 Extraction of Products of Conception, Low, Open Approach (ICD-10-PCS; principal; 2016-10-28)
DX: O34.211 Maternal care for low transverse scar from previous cesarean delivery (principal); Z91.19 Patient's noncompliance with other medical treatment and regimen; Z37.0 Single live birth; Z3A.39 39 weeks gestation of pregnancy
CPT/HCPCS: 59025; 81001; 85025; 86850; 86900; 86901; 90715; J0690; J1050; J2274; J2405; J2590; J7120